=== PATIENT | female | born 1965 | race Caucasian/White ===

== ENCOUNTER → 2016-07-13 | Outpatient (REF) | payer OTHER ==
[2016-07-13 15:51] LABS: BLOOD UREA NITROGEN 10 MG/DL (7-18); CREATININE FOR GFR 0.86 MG/DL (0.55-1.02); GLOMERULAR FILTRATION RATE > 60.0 (>51)
== END ==
LOC: M LABDRAW1 15:13
PROVIDERS: ATTEND Physician Assistant
DX: Z47.89 Encounter for other orthopedic aftercare (principal)

== ENCOUNTER → 2016-09-05 | Outpatient (CLI) | payer OTHER ==
--- NOTE | 2016-09-06 08:18 | REP ---
White blood cell scintigraphy: History: Right knee osteoarthritis with pain. Question reflex sympathetic dystrophy versus infection. Technique: 10.4 millicuries of technetium 99m Ceretec is injected and three-phase imaging of the knees is acquired with flow study done anterior and posterior. Planar blood pool and three hour delayed images are acquired. Findings: The flow and blood pool images are unremarkable. Delayed scan images show no abnormal white blood cell uptake in or about the knee joints on either side. There is some normal marrow uptake and mild residual vascular uptake seen. This is symmetric. Impression: Normal white blood cell scan imaging of the knees. Signed by Teja Porras MD 09/06/2016 08:36 A
== END ==
LOC: M RAD 06:55
PROVIDERS: ATTEND Orthopaedic Surgery
DX: M17.11 Unilateral primary osteoarthritis, right knee (principal)

== ENCOUNTER → 2016-09-14 | Outpatient (REF) | payer OTHER ==
[2016-09-14 11:57] LABS: BASO % 0.5 % (0.0-1.0); EOS # 0.1 K/mm3 (0.0-0.50); EOS % 1.3 % (0.0-3.0); LARGE UNSTAINED CELL # 0.2 K/mm3 (0.0-0.4); LYMPH # 2.6 K/mm3 (1.5-4.5); LYMPH % 31.9 % (24.0-44.0); MEAN CORPUSCULAR HEMOGLOBIN 30.7 pg (27.0-33.0); MEAN CORPUSCULAR HGB CONC 33.8 g/dl (32.0-36.5); MEAN CORPUSCULAR VOLUME 90.7 fl (80.0-96.0); MONO # 0.6 K/mm3 (0.0-0.8); MONO % 7.2 % (0.0-5.0); NEUTROPHILS # 4.7 K/mm3 (1.8-7.7); NEUTROPHILS % 57.2 % (36.0-66.0); PLATELET COUNT, AUTOMATED 267 k/mm3 (150-450); RED CELL DISTRIBUTION WIDTH 12.4 % (11.5-14.5); WHITE BLOOD COUNT 8.2 K/mm3 (4.0-10.0)
[2016-09-14 12:35] LABS: ERYTHROCYTE SEDIMENTATION RATE 3 mm/hr (0-30)
== END ==
LOC: M LABDRAW1 11:30
PROVIDERS: ATTEND Orthopaedic Surgery
DX: M70.61 Trochanteric bursitis, right hip (principal); M25.561 Pain in right knee

== ENCOUNTER → 2017-01-15 | Outpatient (CLI) | payer OTHER ==
--- NOTE | 2017-01-15 14:53 | REP ---
TRIPLE PHASE BONE SCAN OF KNEES: Following the intravenous administration of 21.8 mCi of technetium 99m MDP, the patient's knees are imaged in the flow phase in the anterior and posterior projections showing fairly symmetrical blood flow. Immediate blood pool and two hour delayed images are performed of the knees, anterior, posterior and both lateral projections. No abnormal blood pooling is seen. Delayed images show no abnormal uptake in the region of the right knee. In the region of the left knee, there is mild increased uptake in the region of the patella which may be related to degenerative changes at the patellofemoral joint. IMPRESSION: No scintigraphic abnormality right knee joint. Probable mild uptake in the region of the left patella, is probably related to mild degenerative changes at the patellofemoral joint. Signed by Billy Flood MD 01/15/2017 05:22 P
== END ==
LOC: M RAD 08:51
PROVIDERS: ATTEND Physician Assistant
DX: M79.604 Pain in right leg (principal)

== ENCOUNTER → 2017-06-19 | Outpatient (CLI) | payer OTHER | LOC: M PAIN 10:00 | DX: M25.561 Pain in right knee (principal); G62.9 Polyneuropathy, unspecified; I10 Essential (primary) hypertension; F17.210 Nicotine dependence, cigarettes, uncomplicated; Z79.891 Long term (current) use of opiate analgesic; Z88.8 Allergy status to other drugs, medicaments and biological substances | CPT/HCPCS: G0463 ==

== ENCOUNTER → 2023-09-10 | Outpatient (CLI) | payer MEDICARE, OTHER | LOC: M WUC 12:29 | PROVIDERS: ATTEND Nurse Practitioner Family | DX: M79.645 Pain in left finger(s) (principal); S67.22XA Crushing injury of left hand, initial encounter; W18.30XA Fall on same level, unspecified, initial encounter; Y92.009 Unspecified place in unspecified non-institutional (private) residence as the place of occurrence of the external cause ==